=== PATIENT | male | born 1955 | race Caucasian/White ===

== ENCOUNTER 2023-09-12 13:30 | Emergency (ER) | payer MEDICARE, SELFPAY ==
[2023-09-12 13:58] VITALS: BP 148/90; PULSE 96; O2SAT 97
--- NOTE | 2023-09-12 14:03 | ED.GENADULT ---
HPI - General Adult General Chief complaint: ETOH/Substance Use Stated complaint: N/V, TOOK SUBOXONE @ 5AM PER EMS Time Seen by Provider: 09/12/23 13:37 Source: patient Mode of arrival: ambulatory Limitations: no limitations History of Present Illness ED Provider: Isha FREEMAN HPI narrative: This is a 67 year old male with history of polysubstance abuse presenting with nausea, shakiness, muscle pain after running out of Suboxone. Patient reports he is prescribed 30-day supplies of Suboxone but took more than his prescribed dose a few weeks ago and has run out of his medication early. Last dose was early Tuesday morning, and he reports feeling withdrawal symptoms starting Tuesday afternoon. Reports subjective fevers, nausea, shakiness, and muscle pain. Not SI or HI. Denies hallucinations. Denies current chest pain, sob, dizziness, visual changes, headaches. Related Data Previous Rx's ?Medication ?Instructions ?Recorded buprenorphine 8 mg-naloxone 2 mg 1 film sublingual BID #4 ea 09/12/23 sublingual film (Suboxone) Allergies Allergy/AdvReac Type Severity Reaction Status Date / Time No Known Allergies Allergy Verified 09/12/23 14:00 Review of Systems Review of Systems: Yes all other systems are reviewed and are negative PMFSH Past Medical History Attestation statement: The following information was validated with the patient. Source: old records reviewed and nursing notes reviewed Social History Social History Advance Directives: No Advance Directives Information Provided: Yes Do you have a plan to hurt others: No Plan Physical Exam ED Vital Signs: Vital Signs - 24 hr 09/12/23 14:10 09/12/23 16:21 Temperature 98.0 F 98.4 F Pulse Rate 80 57 Respiratory Rate 18 16 Blood Pressure 145/90 H 156/71 H Pulse Oximetry 96 96 Oxygen Delivery Method Room Air Room Air BMI result Body Mass Index 7.6 vss Appearance: Alert.? Oriented X3.? No acute distress.? Head: Normocephalic, atraumatic, no step-offs or deformities Eyes: Pupils equal, round and reactive to light.? Neck: Normal inspection.? Neck supple.? CVS: Normal heart rate and rhythm.? Pulses normal.? Respiratory: No respiratory distress.? Breath sounds normal.? Abdomen: Soft and nontender.? Skin: Skin warm and dry.? Normal skin color.? Normal skin turgor.? Extremities: No lower extremity edema.? No calf ttp. 5/5 strength to bilateral upper and lower extremities. Neuro: Oriented X 3.? No motor deficit.? No sensory deficit. CN 2-12 intact Course Reevaluation(s) Reevaluation #1: Utox pending. Pending recovery and care team. Phys obs initiated at this time. Time: 15:36 Medications Administered Discontinued Medications Generic Name Dose Route Start Last Admin Trade Name Freq PRN Reason Stop Dose Admin Acetaminophen 975 mg 09/12/23 16:39 09/12/23 16:59 Acetaminophen 325 Mg Tablet PO 09/12/23 16:40 975 mg ONCE ONE Administration Buprenorphine/Naloxone 1 tab 09/12/23 14:27 09/12/23 14:45 Buprenorphine/Naloxone 8/2 Mg Tab.Subl SUBLINGUAL 09/12/23 14:28 1 tab ONCE ONE Administration Ondansetron HCl 4 mg 09/12/23 14:13 09/12/23 14:45 Ondansetron Odt 4 Mg Tab.Rapdis TRANSLINGU 09/12/23 14:14 4 mg ONCE ONE Administration Medical Decision Making Medical Decision Making MDM Narrative: 67 year old male with history of polysubstance abuse presenting with nausea, shakiness, and weakness after running out of Suboxone early. PE benign. Hx and PE concerning for Suboxone withdrawal. Unlikely metabolic derangement, stroke, posterior stroke, ICH, ACS, dissection. Not SI or HI. Plan - labs, urine 1800 seen by detox team advised to discharge patient home follow up as outpatient prescribed Suboxone Differential Diagnosis Differential Diagnoses: The differential diagnosis associated with the presentation includes Hx and PE concerning for Suboxone withdrawal. Unlikely metabolic derangement, stroke, posterior stroke, ICH, ACS, dissection. Not SI or HI. Admission/Observation Consideration of admission/observation: Escalation of care including admission/observation considered Possible Consult Healthcare Provider Management of the patient was discussed with: Woodyard Crane Operator (Carolynn Rojo) Lab Data Labs: Lab Results 09/12/23 Range/Units 16:24 Influenza Type A (PCR) NEGATIVE (Negative) Influenza Type B (PCR) NEGATIVE (Negative) RSV RNA Qual (PCR) NEGATIVE (Negative) SARS-CoV-2 RNA (RT-PCR) NEGATIVE (Negative) Chronic Conditions Patient?s care impacted by: Other (substance abuse ) Critical Care Time Critical Care Time Critical Care Time: No Discharge Plan Discharge Clinical Impression: Substance abuse Patient Disposition: Home, Self-Care Instructions: Polysubstance Abuse (ED) Additional Instructions: Do not take overdose on your medications Follow up with [facility] as scheduled Prescriptions: No Action buprenorphine-naloxone [Suboxone] 8-2 mg film 1 film sublingual BID Qty: 4 0RF Print Language: Micronesian
[2023-09-12 14:10] VITALS: BP 145/90; PULSE 80; RESP 18; TEMP 36.7; O2SAT 96
[2023-09-12] MEDS: Ondansetron ODT 4 MG TAB.RAPDIS TRANSLINGU (14:45)
[2023-09-12] MEDS: Buprenorphine/Naloxone 8/2 mg TAB.SUBL 1 TAB SUBLINGUAL (14:45)
[2023-09-12 16:21] VITALS: BP 156/71; PULSE 57; RESP 16; TEMP 36.9; O2SAT 96
--- NOTE | 2023-09-12 16:43 | P.EN_ITS ---
Event Note Date of Service: 09/12/23 Event Note: Recovery consult requested for patient who presented to ED reporting withdrawal due to running out of his suboxone Patient seen by this selling underwriter, laying on stretcher. Reporting that he took extra suboxone due to not feeling well and his last suboxone dose was taken Tuesday morning. Denies any opiate use Has an appt on with his provider *received 8mg film while waiting, reporting it helped, however he is still experiencing a headache--has not been eating or drinking due to not feeling well Plan: -[facility] reviewed--patient has been consistently prescribed suboxone for the last 2 years. -rx sent in for suboxone 8mg BID #4 -patient to follow up with community provider Time Spent With Patient Time: Total time managing care of this patient today ____ minutes.
[2023-09-12] MEDS: Acetaminophen 325 MG TABLET 975 MG PO (16:59)
[2023-09-12 17:11] LABS: Influenza A PCR NEGATIVE (Negative); Influenza B PCR NEGATIVE (Negative); Resp Syncy Virus RNA Qual PCR NEGATIVE (Negative); SARS COV2 PCR INHOUSE NEGATIVE (Negative)
[2023-09-12 18:10] VITALS: BP 140/70; PULSE 88; RESP 16; TEMP 36.8; O2SAT 98
== END 2023-09-12 18:12 | disposition home or self-care (01) ==
PROVIDERS: Physician Assistant; Emergency Provider Emergency Medicine
DX: F11.23 Opioid dependence with withdrawal (principal); R50.9 Fever, unspecified; R11.0 Nausea; R53.1 Weakness; Z03.818 Encounter for observation for suspected exposure to other biological agents ruled out
CPT/HCPCS: 0241U; 99284

== ENCOUNTER → 2023-09-12 14:27 | Outpatient (BNV) | payer MEDICARE, SELFPAY | PROVIDERS: Emergency Provider Emergency Medicine; Visit Provider Nurse Practitioner Psychiatric/Mental Health | DX: F19.10 Other psychoactive substance abuse, uncomplicated (principal) | CPT/HCPCS: 99499 ==